=== PATIENT | male | born 1960 | race Two or more races ===

== ENCOUNTER 2024-04-08 15:28 | Emergency (ER) | payer MEDICAID ==
[~2024-04-08] VITALS: Ht 172.7 cm; Wt 69.1 kg
[2024-04-08 19:11] LABS: Basophils # (auto) 0.1 10 ^3/uL (0-0.2); Basophils % (auto) 0.8 % (0.0-2.0); Eosinophils # (auto) 0.1 10 ^3/uL (0-0.8); Eosinophils % (auto) 1.5 % (0.0-7.0); Hematocrit 42.1 % (41.0-53.0); Hemoglobin 15.2 g/dL (13.5-17.5); Lymphocytes # (auto) 2.7 10 ^3/uL (0.4-5.4); Mean Corpuscular Hgb Conc. 36.1 g/dL (32.0-36.0); Mean Corpuscular Volume 88.8 fL (80.0-100.0); Monocytes # (auto) 0.6 10 ^3/uL (0-1.3); Monocytes % (auto) 6.3 % (0.0-12.0); Neutrophils % (auto) 63.4 % (37.0-80.0); Nucleated Red Blood Cells % 0.1 %; Platelet Count (auto) 163 10^3/uL (140-450); Red Blood Cells 4.75 10^6/uL (4.5-5.90); Red Cell Distribution Width 12.7 % (11.8-14.3); White Blood Cell 9.5 10^3/uL (4.4-10.8)
[2024-04-08 19:27] LABS: Alanine Aminotransferase 163 U/L (7-40); Albumin 4.1 g/dL (3.2-4.8); Alkaline Phosphatase 129 U/L (46-116); Anion Gap 6 (5-15); Aspartate Aminotransferase 101 U/L (13-40); BUN/Creatinine Ratio 18.3 (10.0-20.0); Bilirubin, Total 0.8 mg/dL (0.2-1.0); Blood Urea Nitrogen 19 mg/dL (9-23); CRP High Sensitivity 0.05 mg/dL (<1.0); Carbon Dioxide 27 mmol/L (20-30); Chloride 104 mmol/L (98-107); Glucose 304 mg/dL (74-106); Potassium 4.1 mmol/L (3.5-5.1); Sodium 137 mmol/L (136-145); Total Protein 7.1 g/dL (5.7-8.2)
[2024-04-08 19:59] LABS: Erythrocyte Sedimentation Rate 13 mm/hr (0-20)
[2024-04-08 21:03] VITALS: BP 143/79; PULSE 67; RESP 17; O2SAT 99
== END 2024-04-08 21:09 | disposition home or self-care (01) ==
LOC: ER 15:28
DX: M79.662 Pain in left lower leg (principal); R74.8 Abnormal levels of other serum enzymes; E11.65 Type 2 diabetes mellitus with hyperglycemia
CPT/HCPCS: 36415; 80053; 83605; 83880; 84484; 85025; 85652; 86141; 93971

== ENCOUNTER 2025-04-08 20:24 | Emergency (ER) | payer MEDICAID ==
[~2025-04-08] VITALS: Ht 188 cm; Wt 68.6 kg
[2025-04-08 20:27] VITALS: BP 161/85; PULSE 84; RESP 16; TEMP 98.8; O2SAT 96
--- NOTE | 2025-04-08 21:11 | DVH ---
EXAM: CT CT AB PEL WO CON-NO ORAL OR IV INDICATION: CONSTIPATION TECHNIQUE: Volumetric multidetector CT images of the abdomen and pelvis were obtained without contras t. All CT scans at this facility use dose modulation, iterative reconstruction, and/or weight based d osing when appropriate to reduce radiation dose to as low as reasonably achievable. COMPARISON: None FINDINGS: [LOWER CHEST]: Patchy peribronchovascular distribution of right middle lobe opacification correlate f or pneumonia. The cardiac size is normal without pericardial effusion.coronary artery calcifications. [LIVER]: Normal hepatic size without suspicious focal lesion. [GALLBLADDER AND BILIARY TREE]: No cholelithiasis. [SPLEEN]: Unremarkable. [PANCREAS]: Unremarkable. [ADRENAL GLANDS]: Unremarkable [KIDNEYS]: No hydronephrosis. No nephroureterolithiasis. [BLADDER]: Simms catheter placement with surrounding circumferential bladder wall thickening correlat e with urinalysis. [REPRODUCTIVE ORGANS]: Mild prostatomegaly [BOWEL/MESENTERY]: Stomach is normal. No CT evidence of bowel obstruction. moderate to severe stool b urden. Large amount of stool burden within the distal sigmoid colon to high and low rectum with surr ounding mesorectal edema and circumferential low rectal wall thickening. Distention up to 7.5 cm and correlate for stercoral colitis [ASCITES]: Absent [LYMPHADENOPATHY]: No pathologically enlarged lymph nodes by CT size criteria [VASCULATURE]: No aneurysmal dilatation. [ABDOMINAL WALL]: Unremarkable. [MUSCULOSKELETAL]: No acute fracture or aggressive focal osseous lesion. Multifocal degenerative martinez ge of the visualized spine. IMPRESSION: 1. Large amount of stool burden within the distal sigmoid colon to high and low rectum with surroundi ng mesorectal edema and circumferential low rectal wall thickening. 2. Distention up to 7.5 cm and correlate for stercoral colitis. 3. Simms catheter placement with surrounding circumferential bladder wall thickening correlate with u rinalysis. 4. Patchy peribronchovascular distribution of right middle lobe opacification correlate for pneumonia .
[2025-04-08 21:28] LABS: Hematocrit 38.6 % (41.0-53.0); Hemoglobin 13.8 g/dL (13.5-17.5); Mean Corpuscular Hemoglobin 32.9 pg (28.0-32.0); Mean Corpuscular Volume 91.8 fL (80.0-100.0); Nucleated Red Blood Cells % 0.0 %
[2025-04-08] MEDS ORDERED: CIPROFLOXACIN 400MG/200ML 200 ML IV ONE (21:45)
[2025-04-08] MEDS ORDERED: SODIUM CHLORIDE 0.9% 1,000 ML IV ONE (21:45)
--- NOTE | 2025-04-08 21:48 | ED.PDOC ---
GI ASSESSMENT HPI Comments HPI: 64-year-old male presents to the ED with a chief complaining of constipation onset 6 days. Patient has been experiencing constipation, has not been able to pass gas for the past 6 days, last bowel movement was 6 days ago, is also experiencing ,mild diffused abdominal pain. He has not tried medication for symptoms. Patient has a devine catheter in place, was placed about 1 month ago due to urinary retention. Denies any nausea, vomiting, diarrhea, dizziness, fever, melena, blood in stool, dysuria, hematuria. No other symptoms or modifying factors present at this time. Initial Vitals BP: 161/85 HR: 84 RR: 16 O2: 96% Temp: 98.8F Past Medical History: HTN, DM, urinary retention Past Surgical History: knee surgery Social History: Denies ETOH, smoking, and drug use. Medications: Denies Allergies: NKDA FERNÁNDEZ: Constipation HPI: Poor Historian. Past Medical History: Past Surgical History: REVIEW OF SYSTEMS: CONSTITUTIONAL: Denies acute: fever, diaphoresis, chills, HEAD: Denies acute: headache, photophobia Eyes: Denies acute: Double vision, vision loss, eye pain, eye discharge. EARS: Denies acute: tinnitus, hearing loss, ear discharge, ear pain, THROAT: Denies acute: sore throat, swelling, difficulty swallowing , pain with swallowing, change in voice. NECK: Denies acute: neck pain, neck swelling, stiff neck. HEART: Denies acute : chest pain, palpitations, LUNGS: Denies acute: SOB, wheezing, cough, hemoptysis ABDOMEN: Denies acute: Nausea, Vomiting, diarrhea, melena , hematemesis, hematochezia SKIN: Denies acute: rash, redness, lesions, itchiness. EXTREMITIES: Denies acute: calf pain, numbness, tingling, weakness, denies pain in extremity. Denies acute: Low back pain. Neuro: Denies acute: focal neurological deficit, motor or sensory focal neurological deficit, tremors, seizure like activity, confusion, dizziness, change in mental status, loss of bowel or bladder function, cauda equina like symptoms. : Denies acute: dysuria, hematuria, flank pain, increase in urinary frequency. PSYCH: Denies acute: hallucination, suicidal ideation, homicidal ideation. PHYSICAL EXAM: General: -----no---acute distress, awake and alert. Head: normocephalic, atraumatic. Neck: supple, trachea is midline, no swelling. Throat: Normal phonation. Eyes:, no erythema, no purulent discharge, no proptosis, no icterus. Heart: regular rate, regular rhythm, no significant murmur appreciated. Lungs: no apparent respiratory distress, Able to speak in full sentences. No wheezing, no rhonchi, no crackles. No stridors Clear to auscultation bilaterally. Abdomen: non tender to palpation, non distended, soft, no guarding, no rebound, + bowel sounds. Neuro: Awake, Alert, oriented to name, self, situation, follows commands GCS=15. Speech is normal. Skin: no petechia, no purpura, no cyanosis, non-pale, not jaundice. Lower extremities: --no - Pitting edema no deformity, no focal swelling, no calf TTP. Makes eye contact. moves all four extremities. Face: no apparent facial droop. Ambulating in the ED independently. ED COURSE: DISCLAIMER: This medical document was created using an electronic medical record system with voice recognition software and computerized dictation system. Although this document has been carefully reviewed, there might still be some phonetic and typographical errors. Occasional wrong-word or "sound-alike" substitutions may have occurred due to the inherent limitations of voice recognition software. These areas are purely typographical due to imperfections of the software programs and do not reflect any compromise in the patient's medical care. Please read the chart carefully and recognize, using context, where these substitutions have occurred. Chief Complaint: Constipation Time Seen by MD: 21:45 Primary Care Provider: NONE Reviewed Notes: Medications, Allergies Allergies: Coded Allergies: No Known Drug Allergy (Verified Allergy, Unknown, 04/08/24) Home Meds Active Scripts Ciprofloxacin Hcl (Cipro) 500 Mg Tab, 500 MG PO BID for 7 Days, #14 CAP Prov:RALF LUCERO DO 04/09/25 Information Source: Patient Mode of Arrival: Ambulatory Timing: Days Duration: Since onset Prehospital treatment: None Quality: Sharp Vomitus: None Severity: Moderate Recent: None Recent Hx of: None Pain Location: Diffuse Modifying Factors: Nothing Associated sign and symptoms: Constipation, Abdominal Pain Past Medical History PAST MEDICAL HISTORY: DM, HTN Surgical History (Other): knee surgery Family History Family History: Reviewed,noncontributory to illness, No family hx of Cancer, No family hx of DM, No family hx of Heart carlotta, No family hx of HTN, No family hx ofKidney carlotta, No family hx of Liver carlotta, No family hx of Lung carlotta, No family hx of Stroke Social History Smoker: Non-Smoker Alcohol: Denies ETOH Use Drugs: Denies Drug Use Lives In: Home Was a procedure done? Was a procedure done?: No GI differential Dx Differential Diagnosis: Other (DDX include Diverticulitis, colitis, gastroenteritis, acute abdomen, bowel obstruction, enteritis, constipation, volvulus, , intraAbdominal mass/neoplasm, Inflammatory bowel disease, ischemic bowel, gastroparesis, narcotics abuse/dependency, fecal impaction, low fiber intake.) X-Ray, Labs, Meds, VS Vital Signs Date Time Temp Pulse Resp B/P (MAP) Pulse Ox O2 Delivery O2 Flow Rate FiO2 04/08/25 20:27 98.8 84 16 161/85 96 98.8 Lab Test 04/09/25 01:15 04/08/25 21:10 Range/Units Urine Color Light-yellow Yellow Urine Clarity Clear Clear Urine pH 5.5 5.0-9.0 Urine Specific [place] 1.006 1.001-1.035 Urine Protein Negative Negative Urine Ketones Negative Negative Urine Blood 1+ H Negative /uL Urine Nitrite 2+ H Negative Urine Bilirubin Negative Negative Urine Urobilinogen Normal Negative mg/dL Urine Leukocyte Esterase 2+ Negative /uL Urine RBC 2 0 - 3 /hpf Urine Microscopic WBC 16 H 0-3 /HPF Urine Squamous Epithelial Cells None seen <5 /hpf Urine Bacteria Mod H None Seen /hpf Urine Glucose Normal Normal mg/dL White Blood Count 15.2 H 4.4-10.8 10^3/uL Red Blood Count 4.20 L 4.5-5.90 10^6/uL Hemoglobin 13.8 13.5-17.5 g/dL Hematocrit 38.6 L 41.0-53.0 % Mean Corpuscular Volume 91.8 80.0-100.0 fL Mean Corpuscular Hemoglobin 32.9 H 28.0-32.0 pg Mean Corpuscular Hemoglobin Concent 35.8 32.0-36.0 g/dL Red Cell Distribution Width 13.1 11.8-14.3 % Platelet Count 186 140-450 10^3/uL Mean Platelet Volume 9.7 6.9-10.8 fL Neutrophils (%) (Auto) 81.1 H 37.0-80.0 % Lymphocytes (%) (Auto) 8.8 L 10.0-50.0 % Monocytes (%) (Auto) 6.6 0.0-12.0 % Eosinophils (%) (Auto) 2.9 0.0-7.0 % Basophils (%) (Auto) 0.6 0.0-2.0 % Neutrophils # (Auto) 12.3 H 1.6-8.6 10 ^3/uL Lymphocytes # (Auto) 1.3 0.4-5.4 10 ^3/uL Monocytes # (Auto) 1.0 0-1.3 10 ^3/uL Eosinophils # (Auto) 0.4 0-0.8 10 ^3/uL Basophils # (Auto) 0.1 0-0.2 10 ^3/uL Nucleated Red Blood Cells 0.0 % Sodium Level 138 136-145 mmol/L Potassium Level 4.1 3.5-5.1 mmol/L Chloride Level 101 98-107 mmol/L Carbon Dioxide Level 28 20-31 mmol/L Anion Gap 9 5-15 Blood Urea Nitrogen 15 9-23 mg/dL Creatinine 0.90 0.700-1.30 mg/dL Glomerular Filtration Rate Calc 96 >90 mL/min BUN/Creatinine Ratio 16.7 10.0-20.0 Serum Glucose 183 H 74-106 mg/dL Lactic Acid Level 1.6 0.4-2.0 mmol/L Calcium Level 10.2 8.7-10.4 mg/dL Total Bilirubin 1.0 0.2-1.0 mg/dL Aspartate Amino Transferase (AST) 35 13-40 U/L Alanine Aminotransferase (ALT) 67 H 7-40 U/L Alkaline Phosphatase 101 46-116 U/L Total Protein 7.9 5.7-8.2 g/dL Albumin 4.6 3.2-4.8 g/dL [facility] [address] [facility] [address] Ph: [phone] DIAGNOSTIC IMAGING Diagnostic Imaging Report : [id number] Signed PATIENT: PAT FERNÁNDEZ ACCT: [id number] UNIT: [id number] : 1960 LOC: ER ROOM / BED: / AGE / SEX: 64 / M ADM STATUS: REG ER SERVICE 38 ORDERING PHYSICIAN: RALF LUCERO DO PROCEDURE(s): ABPL - CT AB PEL WO CON-NO ORAL OR IV REASON: CONSTIPATION ORDER NUMBER(s): [id number], ACCESSION NUMBER(s): [id number] EXAM: CT CT AB PEL WO CON-NO ORAL OR IV INDICATION: CONSTIPATION TECHNIQUE: Volumetric multidetector CT images of the abdomen and pelvis were obtained without contrast. All CT scans at this facility use dose modulation, iterative reconstruction, and/or weight based dosing when appropriate to reduce radiation dose to as low as reasonably achievable. COMPARISON: None FINDINGS: [LOWER CHEST]: Patchy peribronchovascular distribution of right middle lobe opacification correlate for pneumonia. The cardiac size is normal without pericardial effusion.coronary artery calcifications. [LIVER]: Normal hepatic size without suspicious focal lesion. [GALLBLADDER AND BILIARY TREE]: No cholelithiasis. [SPLEEN]: Unremarkable. [PANCREAS]: Unremarkable. [ADRENAL GLANDS]: Unremarkable [KIDNEYS]: No hydronephrosis. No nephroureterolithiasis. [BLADDER]: Devine catheter placement with surrounding circumferential bladder wall thickening correlate with urinalysis. [REPRODUCTIVE ORGANS]: Mild prostatomegaly [BOWEL/MESENTERY]: Stomach is normal. No CT evidence of bowel obstruction. moderate to severe stool burden. Large amount of stool burden within the distal sigmoid colon to high and low rectum with surrounding mesorectal edema and circumferential low rectal wall thickening. Distention up to 7.5 cm and correlate for stercoral colitis [ASCITES]: Absent [LYMPHADENOPATHY]: No pathologically enlarged lymph nodes by CT size criteria [VASCULATURE]: No aneurysmal dilatation. [ABDOMINAL WALL]: Unremarkable. [MUSCULOSKELETAL]: No acute fracture or aggressive focal osseous lesion. Multifocal degenerative change of the visualized spine. IMPRESSION: 1. Large amount of stool burden within the distal sigmoid colon to high and low rectum with surrounding mesorectal edema and circumferential low rectal wall thickening. 2. Distention up to 7.5 cm and correlate for stercoral colitis. 3. Devine catheter placement with surrounding circumferential bladder wall thickening correlate with urinalysis. 4. Patchy peribronchovascular distribution of right middle lobe opacification correlate for pneumonia. ATED BY: NATALYA BRAXTON MD DICTATED DATE/TIME: 04/08/252108 SIGNED BY: NATALYA BRAXTON MD SIGNED DATE/TIME: 04/08/252108 CC: [place] [id number] Ph: [phone] DIAGNOSTIC IMAGING Diagnostic Imaging Report : [id number] Signed PATIENT: PAT FERNÁNDEZ ACCT: [id number] UNIT: [id number] : 1960 LOC: ER ROOM / BED: / AGE / SEX: 64 / M ADM STATUS: REG ER SERVICE 13 ORDERING PHYSICIAN: RALF LUCERO DO PROCEDURE(s): CXRP - CHEST PORTABLE REASON: abn CT ORDER NUMBER(s): [id number], ACCESSION NUMBER(s): [id number] INDICATION: abn CT, SOB TECHNIQUE: Frontal view of the chest. COMPARISON: None FINDINGS/IMPRESSION: Mild right lower lung opacity. Unremarkable cardiomediastinal silhouette. No pleural effusion or pneumothorax. No acute osseous abnormality. ATED BY: NATALYA BRAXTON MD DICTATED DATE/TIME: 04/08/252229 SIGNED BY: NATALYA BRAXTON MD SIGNED DATE/TIME: 04/08/252229 CC: Time of 1ST Reevaluation: 22:15 Reevaluation 1ST: Unchanged Patient Education/Counseling: Diagnosis, Treatment Family Education/Counseling: No Family Present Comments Patient completed his entire gal of GoLYTELY here in the ED. He has been able to have thought bowel movements. Patient was admitted to the hospital but he said he can not stay because he has to go home for other issues. Patient is leaving against medical advice. MDM: patient presented with the above HPI.--constipation abdominal pain----workup was initiated. patient was found with the above mentioned diagnosis. the following medications were ordered: please refer to order lists of meds and tests obtained by myself Dr. Lucero. Patient ED course and VS have been stabilized. Patient has been reassessed in the ED and remained in a stable condition. Escalation of care considered: Consideration of escalation to observation or admission Antibiotics initiated for suspected colitis with leukocytosis. Patient given GoLYTELY. Patient was placed for admission to the medicine team for further evaluation and treatment of their presentation. Patient however decided to leave against medical advice. All the reports of any imaging studies that were ordered by myself were reviewed by myself. Departure 1 Departure Time of Disposition: 02:36 Impression: Primary Impression: Constipation Additional Impressions: Colitis Leukocytosis UTI (urinary tract infection) Left against medical advice Disposition: 07 LEFT AGAINST MEDICAL ADVICE Condition: Guarded Additional Instructions: You are leaving against medical advice. Please seek medical attention BEN Please follow up with gastroenterology in 1-2 days. Please call for appointment Increase fiber intake. Return to the emergency department if you change your mind. Additional instructions: Please read all instructions provided in this packet carefully. You MUST follow-up with your primary care/family doctor BEN If you are unable to see your primary care/family doctor, please return to our emergency room for re-assessment and re-evaluation in 1 to 2 days. Return to the emergency room here in our facility or to the nearest ER BEN if your symptoms change or worsen. CONSULTATIONS: you MUST Follow-up for consultation as soon as possible with: -gastroenterology You MUST call the consultants office yourself to make an appointment. You may need to arrange that through your insurance and/or your primary/family doctor. If you are unable to see the legal consultant in 1 to 2 days, you must return to our emergency room (or any other ER of your choice) for re-assessment and re- evaluation. Adequate fluid hydration. Below is a copy of your radiological report for follow up: [address] [address] Ph: [phone] DIAGNOSTIC IMAGING Diagnostic Imaging Report : [id number] Signed PATIENT: PAT FERNÁNDEZ ACCT: [id number] UNIT: [id number] : 1960 LOC: ER ROOM / BED: / AGE / SEX: 64 / M ADM STATUS: REG ER SERVICE 38 ORDERING PHYSICIAN: RALF LUCERO DO PROCEDURE(s): ABPL - CT AB PEL WO CON-NO ORAL OR IV REASON: CONSTIPATION ORDER NUMBER(s): [id number], ACCESSION NUMBER(s): [id number] EXAM: CT CT AB PEL WO CON-NO ORAL OR IV INDICATION: CONSTIPATION TECHNIQUE: Volumetric multidetector CT images of the abdomen and pelvis were obt ained without contrast. All CT scans at this facility use dose modulation, iterative reconstruction, and/or weight based dosing when appropriate to reduce radiation dose to as low as reasonably achievable. COMPARISON: None FINDINGS: [LOWER CHEST]: Patchy peribronchovascular distribution of right middle lobe opacification correlate for pneumonia. The cardiac size is normal without pericardial effusion.coronary artery calcifications. [LIVER]: Normal hepatic size without suspicious focal lesion. [GALLBLADDER AND BILIARY TREE]: No cholelithiasis. [SPLEEN]: Unremarkable. [PANCREAS]: Unremarkable. [ADRENAL GLANDS]: Unremarkable [KIDNEYS]: No hydronephrosis. No nephroureterolithiasis. [BLADDER]: Devine catheter placement with surrounding circumferential bladder wall thickening correlate with urinalysis. [REPRODUCTIVE ORGANS]: Mild prostatomegaly [BOWEL/MESENTERY]: Stomach is normal. No CT evidence of bowel obstruction. moderate to severe stool burden. Large amount of stool burden within the distal sigmoid colon to high and low rectum with surrounding mesorectal edema and circumferential low rectal wall thickening. Distention up to 7.5 cm and correlate for stercoral colitis [ASCITES]: Absent [LYMPHADENOPATHY]: No pathologically enlarged lymph nodes by CT size criteria [VASCULATURE]: No aneurysmal dilatation. [ABDOMINAL WALL]: Unremarkable. [MUSCULOSKELETAL]: No acute fracture or aggressive focal osseous lesion. Multifocal degenerative change of the visualized spine. IMPRESSION: 1. Large amount of stool burden within the distal sigmoid colon to high and low rectum with surrounding mesorectal edema and circumferential low rectal wall thickening. 2. Distention up to 7.5 cm and correlate for stercoral colitis. 3. Devine catheter placement with surrounding circumferential bladder wall thickening correlate with urinalysis. 4. Patchy peribronchovascular distribution of right middle lobe opacification correlate for pneumonia. ATED BY: NATALYA BRAXTON MD DICTATED DATE/TIME: 04/08/252108 SIGNED BY: NATALYA BRAXTON MD SIGNED DATE/TIME: 04/08/252108 CC: [place] [address] Ph: [phone] DIAGNOSTIC IMAGING Diagnostic Imaging Report : [id number] Signed PATIENT: PAT FERNÁNDEZ ACCT: [id number] UNIT: [id number] : 1960 LOC: ER ROOM / BED: / AGE / SEX: 64 / M ADM STATUS: REG ER SERVICE 13 ORDERING PHYSICIAN: RALF LUCERO DO PROCEDURE(s): CXRP - CHEST PORTABLE REASON: abn CT ORDER NUMBER(s): [id number], ACCESSION NUMBER(s): [id number] INDICATION: abn CT, SOB TECHNIQUE: Frontal view of the chest. COMPARISON: None FINDINGS/IMPRESSION: Mild right lower lung opacity. Unremarkable cardiomediastinal silhouette. No pleural effusion or pneumothorax. No acute osseous abnormality. ATED BY: NATALYA BRAXTON MD DICTATED DATE/TIME: 04/08/252229 SIGNED BY: NATALYA BRAXTON MD SIGNED DATE/TIME: 04/08/252229 e-Prescriptions Ciprofloxacin Hcl (Cipro) 500 Mg Tab 500 MG PO BID for 7 Days, #14 CAP Prov: RALF LUCERO DO 04/09/25 Discharged With: Self Critical Care Note Critical Care Time?: No I personally scribed for RALF LUCERO DO ([email or web address]) on 04/08/25 at 21:48. Electr onically submitted by Lisandra Maloney ([email or web address]). I personally scribed for RALF LUCERO DO ([email or web address]) on 04/08/25 at 22:56. Electronically submitted by Lisandra Maloney ([email or web address]). RALF LUCERO DO Apr 08, 2025 21:48
[2025-04-08 21:58] LABS: Albumin 4.6 g/dL (3.2-4.8); Alkaline Phosphatase 101 U/L (46-116); Anion Gap 9 (5-15); BUN/Creatinine Ratio 16.7 (10.0-20.0); Bilirubin, Total 1.0 mg/dL (0.2-1.0); Blood Urea Nitrogen 15 mg/dL (9-23); Calcium 10.2 mg/dL (8.7-10.4); Carbon Dioxide 28 mmol/L (20-31); Chloride 101 mmol/L (98-107); Potassium 4.1 mmol/L (3.5-5.1); Sodium 138 mmol/L (136-145); Total Protein 7.9 g/dL (5.7-8.2)
[2025-04-08 22:14] LABS: Alanine Aminotransferase 67 U/L (7-40); Glucose 183 mg/dL (74-106)
--- NOTE | 2025-04-08 22:33 | DVH ---
INDICATION: abn CT, SOB TECHNIQUE: Frontal view of the chest. COMPARISON: None FINDINGS/IMPRESSION: Mild right lower lung opacity. Unremarkable cardiomediastinal silhouette. No pl eural effusion or pneumothorax. No acute osseous abnormality.
[2025-04-09] MEDS: GOLYTELY 4L KIT PO ONE (01:45)
[2025-04-09 03:02] LABS: Urine Protein, UAD Negative (Negative)
[2025-04-09] MEDS ORDERED: CIPR-173 PO (03:16)
== END 2025-04-09 02:35 | disposition left against medical advice (07) ==
LOC: ER 20:24
DX: K59.00 Constipation, unspecified (principal); K52.9 Noninfective gastroenteritis and colitis, unspecified; D72.829 Elevated white blood cell count, unspecified; N39.0 Urinary tract infection, site not specified; I10 Essential (primary) hypertension; E11.9 Type 2 diabetes mellitus without complications
CPT/HCPCS: 36415; 71045; 74176; 80053; 81001; 83605; 85025